=== PATIENT | male | born 1990 | race African-American/Black ===

== ENCOUNTER 2019-12-06 23:08 | Emergency (ER) | payer MEDICAID ==
[~2019-12-06] VITALS: Ht 172.7 cm; Wt 73.0 kg
[2019-12-06 23:17] VITALS: BP 130/90
[2019-12-07] MEDS ORDERED: LORAZEPAM 1MG TABLET PO ONE (01:45)
== END 2019-12-07 03:13 | disposition left against medical advice (07) ==
LOC: ER 23:08
DX: R44.0 Auditory hallucinations (principal); F31.9 Bipolar disorder, unspecified
CPT/HCPCS: 99283